=== PATIENT | female | born 1995 | race Caucasian/White ===

== ENCOUNTER 2020-02-20 02:07 | Outpatient (CLI) | payer OTHER, SELFPAY ==
[2020-02-20 18:40] LABS: SARS-CoV-2 RNA PCR Negative
== END 2020-02-20 02:08 | disposition home or self-care (01) ==
LOC: ANHCOVIDDT 02:10
PROVIDERS: PCP Family Medicine; Visit Provider Student in an Organized Health Care Education/Training Program
DX: Z01.812 Encounter for preprocedural laboratory examination (principal); Z11.59 Encounter for screening for other viral diseases
CPT/HCPCS: 87635; C9803; U0003

== ENCOUNTER 2020-02-22 00:56 | Day surgery (SDC) | payer OTHER, SELFPAY ==
[2020-02-11 11:48] VITALS: BMI 33.6
--- NOTE | 2020-02-21 16:23 | PM.IMHP ---
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 Patient had a negative pap smear in 2019, however, was positive for high-risk HPV. Pap smear in 10/2019 showed ASCUS and was also positive for high-risk HPV. A colposcopy was performed and cervical biopsies confirmed SALMA 2. ECC was also positive for SALMA 2. Discussion had with patient and decision made proceed with LEEP procedure. Chief complaint: SALMA 2 Narrative: Danii Reardon is a 24 year old female Review of Systems Review of Systems: All systems reviewed & are unremarkable except as noted in HPI and below Constitutional: Constitutional: Reports as per HPI, Reports no additional constitutional complaints, Denies chills, Denies fever(s), Denies headache(s) and Denies night sweats Eyes: Eyes: Reports as per HPI and Reports no additional eye complaints ENT: Reports system reviewed and no additional complaints, except as documented, Reports as per HPI, Reports Normal hearing present and Denies headache(s) Cardiovascular: Cardiovascular: Reports as per HPI, Reports no additional cardiovascular complaints, Denies chest pain and Denies dyspnea Respiratory: Respiratory: Reports as per HPI, Reports no additional respiratory complaints, Denies cough and Denies dyspnea Gastrointestinal: Gastrointestinal: Reports as per HPI, Reports no additional gastrointestinal complaints, Denies abdominal pain, Denies change in bowel habits, Denies change in stool character, Denies nausea and Denies vomiting Genitourinary: Genitourinary: Reports no additional female genitourinary complaints, Reports as per HPI, Denies abnormal vaginal bleeding, Denies genital lesions, Denies hot flashes, Denies dyspareunia, Denies pelvic pain, Denies sexual dysfunction, Denies urinary incontinence, Denies vaginal discharge, Denies vaginal dryness and Denies vaginal odor Musculoskeletal: Musculoskeletal: Reports no additional musculoskeletal complaints and Reports as per HPI Integumentary/Breasts: Skin/Breast: Reports system reviewed and no additional complaints, except as docu, Reports as per HPI, Denies breast pain and Denies nipple discharge Neurologic: Reports system reviewed and no additional complaints, except as documented, Reports as per HPI, Reports Normal hearing present and Denies headache(s) Psychiatric: Psychiatric: Reports no additional psychiatric complaints, Reports as per HPI, Denies anxiety and Denies depression Endocrine: Endocrine: Reports no additional endocrine complaints and Reports as per HPI Hematologic/Lymphatic: Hematologic/Lymphatic: Reports no additional hematologic/lymphatic complaints and Reports as per HPI Allergic/Immunologic: Allergic/Immunologic: Reports no additional allergic/immunologic complaints and Reports as per HPI PMFSH Past Medical History Medical History HPV (human papilloma virus) infection Surgical History Surgical History [place] teeth removed Social History Social History Smoking status: Never smoker Second hand tobacco smoke exposure: No Alcohol intake: current Meds Home Medications and Allergies Home Medications Medication Instructions Recorded Confirmed Type multivitamin 1 tablet PO DAILY 11/26/19 02/11/20 History norethindrone 1 mg-ethinyl 1 tablet PO DAILY #3 pkg 11/26/19 02/11/20 Rx estradiol 10 mcg (24)-iron 10 mcg(2) tablet polyethylene glycol 3350 17 17 gm PO DAILY 11/26/19 02/11/20 History gram/dose oral powder psyllium seed (sugar) 1 tbsp PO DAILY 11/26/19 02/11/20 History Allergies Allergy/AdvReac Type Severity Reaction Status Date / Time No Known Allergies Allergy Verified 02/15/20 08:40 Exam Const: General: cooperative, healthy appearing, comfort
[2020-02-22 06:45] VITALS: BP 126/85; PULSE 84; RESP 16; TEMP 36.1; O2SAT 98
[2020-02-22 07:06] VITALS: BMI 35.9
[2020-02-22] MEDS: ACETAMINOPHEN 500 MG TABLET 1000 MG PO (07:07)
--- NOTE | 2020-02-22 07:15 | WPDHPUPDATE1 ---
History and Physical Update Update Date/Time: 02/22/20 07:15 History and Physical has been reviewed, including an updated exam of the patient. There are NO changes in the patient's condition. Risks, benefits, and alternatives have been discussed and questions answered. Patient agrees to proceed with procedure.
[2020-02-22] MEDS: LACTATED RINGERS 1,000 ML 30 ML IV CONT (07:17)
--- NOTE | 2020-02-22 07:22 | P.PNAN_ITS ---
Anes - Initial Pre Proc Eval Procedure: Operation Date: 02/22/20 08:30 Proposed Procedures p Loop Electrical Excision Procedure - Marleen Patino MD Date/Time: 02/22/20 07:22 Surgeon: Marleen Patino MD Pre Op Diagnosis: SALMA 2 Patient Data Age: 24 Gender: F Height: 5 ft 3 in Weight: 92.1 kg Allergies Allergy/AdvReac Type Severity Reaction Status Date / Time No Known Allergies Allergy Verified 02/22/20 07:01 Home Medications Medication Instructions Recorded Confirmed Type multivitamin 1 tablet PO DAILY 11/26/19 02/22/20 History norethindrone 1 mg-ethinyl 1 tablet PO DAILY #3 pkg 11/26/19 02/22/20 Rx estradiol 10 mcg (24)-iron 10 mcg(2) tablet polyethylene glycol 3350 17 17 gm PO DAILY 11/26/19 02/22/20 History gram/dose oral powder psyllium seed (sugar) 1 tbsp PO DAILY 11/26/19 02/22/20 History Patient hx anesthesia problems: none Family hx anesthesia problems: none PMFSH Past Medical History Medical History (Updated 02/22/20 @ 07:23 by Philip Hicks MD) HPV (human papilloma virus) infection Obesity Surgical History Surgical History [place] teeth removed Social History Social History Smoking status: Never smoker Second hand tobacco smoke exposure: No Alcohol intake: current Anes - Eval Final PreProcedure Day of Procedure 02/22/20 07:22 Patient weight: obese Heart: regular rate and rhythm Lungs: clear to auscultation Airway: Mallampati scale class 1 Neurological: alert and oriented Last oral intake: >/= 8 hours ASA classification: II Emergent: no Anesthetic plan: proceed Anesthesia type and monitoring: general GIVS and standard monitoring Informed Consent: The patient's anesthetic plan and its attendant risks and benefits were discussed with the patient/family/POA. Questions were solicited and answers provided to the satisfaction of the patient/family/POA.
[2020-02-22 09:00] VITALS: BP 126/87; PULSE 85; RESP 12; O2SAT 95
--- NOTE | 2020-02-22 09:08 | P.OP_ITS ---
Procedure Note - Detailed Date of procedure: 02/22/20 Pre-op diagnosis: SALMA 2 Post-op diagnosis: same Procedure performed: Loop electrosurgical excision procedure Description of procedure: The patient was taken to the operating room where she self-transferred to the operating room table. She was placed in dorsal supine position. Anesthesia was administered and found to be adequate. The patient was repositioned in dorsal lithotomy position and prepped and draped in the usual sterile fashion. A coated bivalve speculum was inserted into the vagina and suction tubing was connected to the speculum. The cervix was well visualized. A paracervical block was performed with 1% lidocaine. 5 cc of lidocaine was administered on both sides for a total of 10 cc. Lugol's solution was applied across the entire surface of the cervix. A narrow area of non-uptake was noted circumferentially around the cervix. A medium-size loop was selected and connected to the electrical generator. This loop was used to excise a portion of the anterior surface of the cervix, including the cervical os. A single pass was made. The specimen was removed and set aside. An endocervical curettage was also performed. Rollerball cautery was used to cauterize the entire excision site and margins of the excision bed. Excellent hemostasis was noted. The procedure was deemed complete. The vagina was dried and the speculum was removed. The anterior portion of the cervix was tagged at 12:00 with a suture. Specimen were prepared to be sent to pathology for analysis. The patient was cleansed and dried. She was taken out of the dorsal lithotomy position and awakened from anesthesia without difficulty. She was transported to the recovery room in stable condition. All sponge and instrument counts were correct at the end of the procedure. Anesthesia: MAC Surgeon: Marleen Patino MD General Car Yard Supervisor: None Estimated blood loss (mL): 0 IV fluids (mL): 300 Urine output (mL): 75 Drains: No Packing: No Pathology: yes (anterior portion of cervix, endocervical curettage) Complications: No immediate complications Condition: stable Disposition: same day Findings: Intraoperative findings: narrow area of uptake noted around cervical os
[2020-02-22 09:30] VITALS: BP 112/75; PULSE 73
--- NOTE | 2020-02-26 08:52 | WPDCN ---
HPI Data of Consult Date/Time: 02/26/20 08:52 Requesting Physician: Marleen Patino MD Primary Care Provider: Aniceto Bonilla MD Consult Narrative Narrative: Danii Reardon is a 24 year old female [facility] Past Medical History Medical History (Updated 02/22/20 @ 07:23 by Philip Hicks MD) HPV (human papilloma virus) infection Obesity Surgical History Surgical History [place] teeth removed Social History Social History Smoking status: Never smoker Second hand tobacco smoke exposure: No Alcohol intake: current Meds Home Medications and Allergies Home Medications Medication Instructions Recorded Confirmed Type multivitamin 1 tablet PO DAILY 11/26/19 02/22/20 History norethindrone 1 mg-ethinyl 1 tablet PO DAILY #3 pkg 11/26/19 02/22/20 Rx estradiol 10 mcg (24)-iron 10 mcg(2) tablet polyethylene glycol 3350 17 17 gm PO DAILY 11/26/19 02/22/20 History gram/dose oral powder psyllium seed (sugar) 1 tbsp PO DAILY 11/26/19 02/22/20 History Allergies Allergy/AdvReac Type Severity Reaction Status Date / Time No Known Allergies Allergy Verified 02/22/20 07:01
== END 2020-02-22 09:52 | disposition home or self-care (01) ==
PROVIDERS: PCP Family Medicine; Visit Provider Student in an Organized Health Care Education/Training Program
PROC: 0UBC7ZZ Excision of Cervix, Via Natural or Artificial Opening (ICD-10-PCS; CPT 57522; principal; 2020-02-22 08:30)
DX: N87.1 Moderate cervical dysplasia (principal); N72 Inflammatory disease of cervix uteri; A63.0 Anogenital (venereal) warts; E66.9 Obesity, unspecified; Z68.36 Body mass index [BMI] 36.0-36.9, adult
CPT/HCPCS: 57522; 87635; 88305; 88307; A9270; C9803; J2250; J2704; J3010; J7120; U0003